=== PATIENT | female | born 1970 | race Caucasian/White ===

== ENCOUNTER → 2017-08-25 | Outpatient (CLI) | payer BC ==
--- NOTE | 2017-08-26 11:47 | MM ---
Reason for exam: screening (asymptomatic). Last mammogram was performed 2 years and 3 months ago. History: Taking hormonal contraceptives for 3 months beginning at age 36. Physical Findings: A clinical breast exam by your physician is recommended on an annual basis and results should be correlated with mammographic findings. MG Screening Mammo w CAD Bilateral CC and MLO view(s) were taken. Prior study comparison: May 23, 2015, bilateral MG screening mammo w CAD. September 18, 2012, bilateral digital screening mammo w/CAD. The breast tissue is heterogeneously dense. This may lower the sensitivity of mammography. There is no discrete abnormality. ASSESSMENT: Negative, BI-RAD 1 RECOMMENDATION: Routine screening mammogram of both breasts in 1 year.
== END | disposition home or self-care (01) ==
LOC: RADMAMWWP 08:58
PROVIDERS: ATTEND Obstetrics & Gynecology
DX: Z12.31 Encounter for screening mammogram for malignant neoplasm of breast (principal)
CPT/HCPCS: 77067

== ENCOUNTER 2017-12-05 09:41 | Observation (INO) | payer BC ==
--- NOTE | 2017-12-05 10:16 | ED ---
General Adult HPI - General Chief complaint: Chest Pain Stated complaint: Chest tighness Time Seen by Provider: 12/05/17 10:00 Source: patient, RN notes reviewed Mode of arrival: wheelchair Limitations: no limitations - History of Present Illness Initial comments: 47 yo female presenting for evaluation of chest tightness and pain in her left knee. Patient was seen at [facility], sent over for evaluation of both chest tightness and concern for DVT in the left lower extremity. Patient has had sharp intermittent pain behind her left knee, no swelling, no calf tenderness. This has been daily for the past several weeks, pain lasts just seconds and then resolves. Patient also has had an episode of bandlike chest tightness around her upper abdomen and lower chest for the past one week. This is been constant. Described as a tightness. No dyspnea. No diaphoresis. No nausea vomiting. No sharp pains. No radiation to her shoulders or arms. - Related Data Home Medications Medication Instructions Recorded Confirmed Norgestimate-Ethinyl Estradiol 1 tab PO DAILY 12/05/17 12/05/17 [Sprintec 28 Day Tablet] Allergies Allergy/AdvReac Type Severity Reaction Status Date / Time No Known Allergies Allergy Verified 12/05/17 10:33 Review of Systems ROS Statement: Those systems with pertinent positive or pertinent negative responses have been documented in the HPI. ROS Other: All systems not noted in ROS Statement are negative. Past Medical History Past Medical History: No Reported History Additional Past Medical History / Comment(s): endometriosis History of Any Multi-Drug Resistant Organisms: None Reported Additional Past Surgical History / Comment(s): surgery for endometriosis Past Psychological History: No Psychological Hx Reported Smoking Status: Former smoker Past Alcohol Use History: Occasional Past Drug Use History: None Reported General Exam Limitations: no limitations General appearance: alert, in no apparent distress Head exam: Present: atraumatic, normocephalic Eye exam: Present: normal appearance, PERRL, EOMI ENT exam: Present: normal exam Neck exam: Present: normal inspection. Absent: tenderness, meningismus Respiratory exam: Present: normal lung sounds bilaterally. Absent: respiratory distress Cardiovascular Exam: Present: regular rate, normal rhythm GI/Abdominal exam: Present: soft. Absent: distended, tenderness, guarding Extremities exam: Present: normal inspection, normal capillary refill. Absent: pedal edema, calf tenderness Neurological exam: Present: alert, oriented X3, CN II-XII intact. Absent: motor sensory deficit Psychiatric exam: Present: normal affect, normal mood Skin exam: Present: warm, dry, intact. Absent: cyanosis, diaphoretic Course Vital Signs 12/05/17 12/05/17 12/05/17 09:44 11:17 12:04 Temperature 98.4 F Pulse Rate 79 65 65 Respiratory 18 16 16 Rate Blood Pressure 133/79 147/80 122/70 O2 Sat by Pulse 100 99 99 Oximetry EKG Findings - EKG Comments: EKG Findings:: EKG, sinus rhythm with PACs, minimal voltage criteria for LVH, rate of 77, AZ interval 144, QRS duration 94, QTC 439. Medical Decision Making - Medical Decision Making 47-year-old with chest tightness, concern for lower extremity DVT. Chest x- rays obtained, this is negative for acute cardiopulmonary disease, venous duplex of the left lower extremity negative for DVT. D-dimer is mildly elevated given the chest tightness, CT angiography is obtained, this is negative for central PE, suboptimal study for peripheral pulmonary embolism. Laboratory studies are otherwise unremarkable. Patient's symptoms are somewhat concerning for CAD. She will be placed in observation for serial cardiac enzymes and cardiology consult. Case discussed with Dr. Reed will accept admission. - Lab Data Result diagrams: 12/05/17 10:00 12/05/17 10:00 Lab Results 12/05/17 12/05/17 12/05/17 Range/Units 10:00 10:00 10:00 WBC 7.5 (3.8-10.6) k/uL RBC 4.27 (3.80-5.40) m/uL Hgb 12.2 (11.4-16.0) gm/dL Hct 37.1 (34.0-46.0) % MCV 86.9 (80.0-100.0) fL MCH 28.5 (25.0-35.0) pg MCHC 32.8 (31.0-37.0) g/dL RDW 13.1 (11.5-15.5) % Plt Count 336 (150-450) k/uL Neutrophils % 73 % Lymphocytes % 21 % Monocytes % 4 % Eosinophils % 1 % Basophils % 0 % Neutrophils # 5.4 (1.3-7.7) k/uL Lymphocytes # 1.5 (1.0-4.8) k/uL Monocytes # 0.3 (0-1.0) k/uL Eosinophils # 0.1 (0-0.7) k/uL Basophils # 0.0 (0-0.2) k/uL PT (9.0-12.0) sec INR (<1.2) APTT (22.0-30.0) sec D-Dimer (<0.60) mg/L FEU Sodium 142 (137-145) mmol/L Potassium 4.6 (3.5-5.1) mmol/L Chloride 103 (98-107) mmol/L Carbon Dioxide 25 (22-30) mmol/L Anion Gap 14 mmol/L BUN 10 (7-17) mg/dL Creatinine 0.60 (0.52-1.04) mg/dL Est GFR (CKD-EPI)AfAm >90 (>60 ml/min/1.73 sqM) Est GFR (CKD-EPI)NonAf >90 (>60 ml/min/1.73 sqM) Glucose 100 H (74-99) mg/dL Calcium 9.9 (8.4-10.2) mg/dL Magnesium 1.8 (1.6-2.3) mg/dL Total Bilirubin 0.3 (0.2-1.3) mg/dL AST 13 L (14-36) U/L ALT 18 (9-52) U/L Alkaline Phosphatase 74 (38-126) U/L Total Creatine Kinase 29 L (30-135) U/L CK-MB (CK-2) <0.2 (0.0-2.4) ng/mL CK-MB (CK-2) Rel Index Troponin I <0.012 (0.000-0.034) ng/mL NT-Pro-B Natriuret Pep pg/mL Total Protein 7.4 (6.3-8.2) g/dL Albumin 4.1 (3.5-5.0) g/dL Amylase 78 (30-110) U/L Lipase 62 (23-300) U/L 12/05/17 12/05/17 Range/Units 10:00 10:00 WBC (3.8-10.6) k/uL RBC (3.80-5.40) m/uL Hgb (11.4-16.0) gm/dL Hct (34.0-46.0) % MCV (80.0-100.0) fL MCH (25.0-35.0) pg MCHC (31.0-37.0) g/dL RDW (11.5-15.5) % Plt Count (150-450) k/uL Neutrophils % % Lymphocytes % % Monocytes % % Eosinophils % % Basophils % % Neutrophils # (1.3-7.7) k/uL Lymphocytes # (1.0-4.8) k/uL Monocytes # (0-1.0) k/uL Eosinophils # (0-0.7) k/uL Basophils # (0-0.2) k/uL PT 9.5 (9.0-12.0) sec INR 1.0 (<1.2) APTT 22.6 (22.0-30.0) sec D-Dimer 0.57 (<0.60) mg/L FEU Sodium (137-145) mmol/L Potassium (3.5-5.1) mmol/L Chloride (98-107) mmol/L Carbon Dioxide (22-30) mmol/L Anion Gap mmol/L BUN (7-17) mg/dL Creatinine (0.52-1.04) mg/dL Est GFR (CKD-EPI)AfAm (>60 ml/min/1.73 sqM) Est GFR (CKD-EPI)NonAf (>60 ml/min/1.73 sqM) Glucose (74-99) mg/dL Calcium (8.4-10.2) mg/dL Magnesium (1.6-2.3) mg/dL Total Bilirubin (0.2-1.3) mg/dL AST (14-36) U/L ALT (9-52) U/L Alkaline Phosphatase (38-126) U/L Total Creatine Kinase (30-135) U/L CK-MB (CK-2) (0.0-2.4) ng/mL CK-MB (CK-2) Rel Index Troponin I (0.000-0.034) ng/mL NT-Pro-B Natriuret Pep 147 pg/mL Total Protein (6.3-8.2) g/dL Albumin (3.5-5.0) g/dL Amylase (30-110) U/L Lipase (23-300) U/L Disposition Clinical Impression: Chest pain Disposition: [facility] Condition: Stable Is patient prescribed a controlled substance at discharge?: No Referrals: None,Stated [Primary Care Provider] - 1-2 days Decision to Admit Reason: Admit from EC Decision Date: 12/05/17 Decision Time: 13:05
[2017-12-05 10:34] LABS: Basophils % (A) 0 %; Eosinophils # (A) 0.1 k/uL (0-0.7); Eosinophils % (A) 1 %; HCT 37.1 % (34.0-46.0); HGB 12.2 gm/dL (11.4-16.0); Lymphocytes # (A) 1.5 k/uL (1.0-4.8); Lymphocytes % (A) 21 %; MCH 28.5 pg (25.0-35.0); MCHC 32.8 g/dL (31.0-37.0); MCV 86.9 fL (80.0-100.0); Mean Platelet Volume 7.6; Monocytes # (A) 0.3 k/uL (0-1.0); Monocytes % (A) 4 %; Neutrophils # (A) 5.4 k/uL (1.3-7.7); Neutrophils % (A) 73 %; Platelet Count 336 k/uL (150-450); RBC 4.27 m/uL (3.80-5.40); RDW 13.1 % (11.5-15.5); WBC 7.5 k/uL (3.8-10.6)
[2017-12-05 10:42] LABS: ALT 18 U/L (9-52); AST 13 U/L (14-36); Albumin 4.1 g/dL (3.5-5.0); Alkaline Phosphatase 74 U/L (38-126); Amylase 78 U/L (30-110); Anion Gap 14 mmol/L; Blood Urea Nitrogen 10 mg/dL (7-17); Calcium 9.9 mg/dL (8.4-10.2); Carbon Dioxide 25 mmol/L (22-30); Chloride 103 mmol/L (98-107); Glucose 100 mg/dL (74-99); Lipase 62 U/L (23-300); Magnesium 1.8 mg/dL (1.6-2.3); Potassium 4.6 mmol/L (3.5-5.1); Sodium 142 mmol/L (137-145); Total Bilirubin 0.3 mg/dL (0.2-1.3); Total Protein 7.4 g/dL (6.3-8.2)
[2017-12-05 10:49] LABS: D-Dimer 0.57 mg/L FEU (<0.60); Partial Thromboplastin Time 22.6 sec (22.0-30.0); Prothrombin Time 9.5 sec (9.0-12.0)
--- NOTE | 2017-12-05 11:05 | XR ---
EXAMINATION TYPE: XR chest 2V DATE OF EXAM: 12/05/2017 COMPARISON: NONE HISTORY: Chest tightness and pain for 5 days. TECHNIQUE: Frontal and lateral views of the chest are obtained. FINDINGS: Overlying EKG wires are noted. There is no focal air space opacity, pleural effusion, or p neumothorax seen. The cardiac silhouette size is within normal limits. The osseous structures are intact. IMPRESSION: No acute cardiopulmonary process.
[2017-12-05 11:07] LABS: Creatine Kinase 29 U/L (30-135)
--- NOTE | 2017-12-05 11:19 | US ---
EXAMINATION TYPE: US venous doppler duplex LE LT DATE OF EXAM: 12/05/2017 10:14 AM COMPARISON: NONE CLINICAL HISTORY: Pain. left knee pain and chest pain, no h/o dvt SIDE PERFORMED: Left TECHNIQUE: The lower extremity deep venous system is examined utilizing real time linear array sonog dwight with graded compression, doppler sonography and color-flow sonography. VESSELS IMAGED: External Iliac Vein (EIV) Common Femoral Vein Deep Femoral Vein Greater Saphenous Vein * Femoral Vein Popliteal Vein Small Saphenous Vein * Proximal Calf Veins (* superficial vessels) Left Leg: Appears negative for DVT Grayscale, color doppler, spectral doppler imaging performed of the deep veins of the left lower ext remity. There is normal flow, compressibility, vascular waveforms. IMPRESSION: No ultrasound evidence for acute DVT in the left lower extremity.
[2017-12-05 11:20] LABS: Creatine Kinase MB <0.2 ng/mL (0.0-2.4); Troponin I <0.012 ng/mL (0.000-0.034)
[2017-12-05] MEDS ORDERED: RX INFO: IV CONTRAST WAS GIVEN 1 EACH MISC MISCELLANE PRN (12:02)
--- NOTE | 2017-12-05 12:46 | CT ---
EXAMINATION TYPE: CT angio chest DATE OF EXAM: 12/05/2017 COMPARISON: NONE HISTORY: Chest pressure and pain, left knee pain CT DLP: 298.4 mGycm. Automated Exposure Control for Dose Reduction was Utilized. CONTRAST: CTA scan of the thorax is performed with IV Contrast, patient injected with 100 mL of Isovue 370, pul monary embolism protocol. MIP Images are created on CT scanner and reviewed. FINDINGS: LUNGS: Respiratory motion artifact is seen making evaluation suboptimal particularly for subcentimete r nodularity. Dependent atelectasis in both lower lobes is present. There is no suspicious focal cons olidation. There is no suspicious pleural effusion or pneumothorax seen bilaterally. No concerning pa renchymal mass is identified bilaterally. Mild central peribronchial wall thickening is seen. MEDIASTINUM: There is suboptimal bolus with denser contrast the left versus right heart system and mo st dense contrast in the SVC. There is no large central pulmonary embolism, smaller lobar as well as segmental and subsegmental PE cannot be excluded on this study. There are no greater than 1 cm hilar or mediastinal lymph nodes. No significant pericardial effusion is seen. Mild cardiomegaly is prese nt. OTHER: Portion of fairly normal-appearing ascending appendix is noted in the right abdomen IMPRESSION: 1. Suboptimal study, no large central pulmonary embolism, smaller lobar, segmental, and subsegmental PE cannot be excluded on this study. 2. Mild cardiomegaly without suspicious acute pulmonary process.
[2017-12-05] MEDS ORDERED: NALOXONE 0.4 MG/ML 1 ML VIAL IV PRN (13:26)
[2017-12-05] MEDS ORDERED: ASPIRIN 325 MG TAB PO STA (13:31)
[2017-12-05] MEDS: SODIUM CHLORIDE 0.9% 1,000 ML IV SCH (13:37)
[2017-12-05] MEDS ORDERED: NITROGLYCERIN SL TABS 0.4 MG TAB SUBLINGUAL PRN (14:16)
[2017-12-05 16:17] LABS: Creatine Kinase 25 U/L (30-135)
[2017-12-05 16:30] LABS: Creatine Kinase MB <0.2 ng/mL (0.0-2.4); Troponin I <0.012 ng/mL (0.000-0.034)
--- NOTE | 2017-12-05 16:52 | P.HPIM ---
History of Present Illness H&P Date: 12/05/17 Chief Complaint: Chest pain and left leg pain 47-year-old female with no significant past medical history. She presented to the hospital due to complaints of chest pain and left leg pain. For the leg pain she reported that's been going on for 3 weeks now she feels random attacks of sharp pain lasting few seconds and the back of her left knee and upper left leg for which can happen randomly severe sharp pain 8 out of 10 in severity that last visit and then dissipates on its own not related to any activity of or movement she does not recall any injuries or traumas. Further workup in the ED did not reveal any DVTs or acute PE. She also reported some chest pain described it as a band goes around her lower chest and back started while she was walking around at the mall a week ago and persisted until today she said the pain is like 2-3 out of 10 in severity just dull achy pain does not prevent her from going on about her day and activities but it's been concerning to her as it is not going away. This is not associated with any dizziness, lightheadedness, sweating, trouble breathing, denies any orthopnea, paroxysmal maternal dyspnea or leg leg swelling. She denies any family history of premature CAD. She quit smoking over 20 years ago. And she is active daily without any limitations. Patient also reports some discomfort with certain meals where it could be associated with an immediate bowel movement after eating and some upper abdominal discomfort. Again denies any nausea or vomiting denies any diarrhea. Review of Systems Constitutional: Patient denies fever, denies chills, denies night sweating, denies significant weight changes Eyes: Patient denies visual changes, denies eye pain ENT: Patient denies ear pain, denies rhinorrhea, denies sore throat Cardiovascular: Patient denies exertional dyspnea, denies peripheral leg edema, denies orthopnea, denies paroxysmal nocturnal dyspnea Respiratory:Patient denies cough, denies wheezing, denies shortness of breath Gastrointestinal: As per HPI Genitourinary: Patient denies dysuria, denies hematuria, denies changes in urinary habits, denies genital lesions Musculoskeletal: Patient reports left leg pain as mentioned in HPI denies joint pain Psychiatric: Patient denies changes in mood or memory, denies suicidal ideation, denies anxiety Endocrine: Patient denies heat intolerance, denies cold intolerance, denies excessive thirst, denies polyuria Neurological: Patient denies focal neurologic deficits, denies weakness, denies numbness, denies tingling Hem/Lymphatic: Patient denies bleeding tendency, denies bruising, denies swollen lymph glands Allergic/Immun: Patient denies recent allergic reactions Skin: Patient denies rashes, denies pruritis, denies ulcers Past Medical History Past Medical History: No Reported History Additional Past Medical History / Comment(s): Frequent headaches. History of Any Multi-Drug Resistant Organisms: None Reported Additional Past Surgical History / Comment(s): surgery for endometriosis many years ago, wisdom teeth extractions. Past Anesthesia/Blood Transfusion Reactions: No Reported Reaction, Motion Sickness Smoking Status: Former smoker - Past Family History Father Family Medical History: Hypertension Mother Family Medical History: Cancer Additional Family Medical History / Comment(s): Mother had a type of sarcoma. Medications and Allergies Home Medications Medication Instructions Recorded Confirmed Type Norgestimate-Ethinyl Estradiol 1 tab PO DAILY 12/05/17 12/05/17 History [Sprintec 28 Day Tablet] Allergies Allergy/AdvReac Type Severity Reaction Status Date / Time No Known Allergies Allergy Verified 12/05/17 10:33 Physical Exam Vitals: Vital Signs Temp Pulse Resp BP Pulse Ox 12/05/17 13:37 78 16 126/84 100 12/05/17 12:04 65 16 122/70 99 12/05/17 11:17 65 16 147/80 99 12/05/17 09:44 98.4 F 79 18 133/79 100 Intake and Output 12/04/17 12/05/17 12/05/17 22:59 06:59 14:59 Other: Weight 79.379 kg Constitutional: No acute distress, conversant, pleasant Eyes: Anicteric sclerae, moist conjunctiva, no lid-lag Pupils equal round reactive to light ENMT: NC/AT Oropharynx clear, no erythema, exudates Neck: Supple, FROM, no masses, or JVD No carotid bruits No thyromegaly Lungs: Clear to auscultation Clear to percussion Normal respiratory effort, no accessory muscle use Cardiovascular: Heart regular in rate and rhythm, No murmurs, gallops, or rubs No peripheral edema Abdominal: Soft Discomfort to palpation of the epigastric region, no guarding, rebound or rigidity Abdomen moving with respiration Normoactive bowel sounds No hepatomegaly, No splenomegaly No palpable mass No abdominal wall hernia noted Skin: Normal temperature, tone, texture, turgor No induration No subcutaneous nodules No rash, lesions No ulcers Extremities: No digital cyanosis No clubbing Pedal pulses intact and symmetrical Radial pulses intact and symmetrical No calf tenderness Psychiatric: Alert and oriented to person, place and time Appropriate affect fair judgment Neuro Muscles Strength 5/5 in all 4 extremities Sensation to light touch grossly present throughout Cranial nerves II-XII grossly intact No focal sensory deficits Lymphatics: no palpable cervical or supraclavicular , or inguinal lymph nodes Results CBC & Chem 7: 12/05/17 10:00 12/05/17 10:00 Labs: Abnormal Lab Results - Last 24 Hours (Table) 12/05/17 12/05/17 Range/Units 10:00 10:00 Glucose 100 H (74-99) mg/dL AST 13 L (14-36) U/L Total Creatine Kinase 29 L (30-135) U/L Thrombosis Risk Factor Assmnt - Choose All That Apply Any of the Below Risk Factors Present?: Yes Each Factor Represents 1 point: Age 41-60 years, Obesity (BMI >25) Other Risk Factors: No Other congenital or acquired thrombophilia - If yes, enter type in comment: No Thrombosis Risk Factor Assessment Total Risk Factor Score: 2 Thrombosis Risk Factor Assessment Level: Low Risk Assessment and Plan Assessment: 47-year-old female otherwise healthy without any past medical history. Presented due to frequent attacks of left leg pain. And lower chest upper abdominal pain. Patient is admitted under observation for further cardiac workup at the cycle cardiac enzymes to rule out ACS. Plan: #Atypical chest pain, most likely noncardiac Rule out ACS, cycle cardiac enzymes Lipase is negative #Abdominal discomfort with meals Check limited abdominal ultrasound to rule out cholelithiasis or gallstones #DVT prophylaxis Heparin subcu 3 times a day #Left leg pain Most likely musculoskeletal CODE STATUS: Full code Discussed with: Patient, ER, family Anticipated discharge: [address]: Home A total of 50 minutes was spent on the care of this complex patient more than 50 % of the time was spent in counseling and care coordination.
[2017-12-05] MEDS: HEPARIN SODIUM,PORCINE 5,000 UNIT/ML 1 ML VIAL SQ SCH (21:25)
[2017-12-05] MEDS: NORGESTIMATE-ETHINYL ESTRADIOL 1 EACH TABLET PO SCH (21:28)
[2017-12-05 23:07] LABS: Creatine Kinase 25 U/L (30-135)
[2017-12-05 23:19] LABS: Creatine Kinase MB <0.2 ng/mL (0.0-2.4); Troponin I <0.012 ng/mL (0.000-0.034)
--- NOTE | 2017-12-06 08:33 | US ---
EXAMINATION TYPE: US abdomen limited DATE OF EXAM: 12/06/2017 COMPARISON: NONE CLINICAL HISTORY: abd pain , r/o gall stones, cholelithiasis. abd pain EXAM MEASUREMENTS: Liver Length: 14.8 cm Gallbladder Wall: 0.4 cm CBD: 0.6 cm Right Kidney: 9.9 x 4.9 x 4.6 cm Pancreas: wnl Liver: wnl Gallbladder: 2.1cm mobile stone seen with thickened wall Evidence for sonographic Grimes's sign: no CBD: upper limits of normal Right Kidney: wnl IMPRESSION: Cholelithiasis and slight thickening of the gallbladder wall without other convincing trinity dence of acute cholecystitis. HIDA and could be performed for further evaluation to exclude cholecyst itis.
[2017-12-06] MEDS: ASPIRIN 81 MG PO SCH (08:51)
[2017-12-06] MEDS: HEPARIN SODIUM,PORCINE 5,000 UNIT/ML 1 ML VIAL SQ SCH (08:51)
[2017-12-06] MEDS: NORGESTIMATE-ETHINYL ESTRADIOL 1 EACH TABLET PO SCH (08:54)
--- NOTE | 2017-12-06 10:52 | ECHOF ---
Referral Reason:cp MEASUREMENTS -------- HEIGHT: 160.0 cm WEIGHT: 78.9 kg BP: 138/84 RVIDd: 2.5 cm (< 3.3) IVSd: 0.9 cm (0.6 - 1.1) LVIDd: 4.7 cm (3.9 - 5.3) LVPWd: 0.9 cm (0.6 - 1.1) IVSs: 1.1 cm LVIDs: 3.5 cm LVPWs: 1.3 cm LAESV Index (A-L): 31.03 ml/m Ao Diam: 2.8 cm (2.0 - 3.7) AV Cusp: 1.9 cm (1.5 - 2.6) LA Diam: 2.9 cm (2.7 - 3.8) EPSS: 1.4 cm MV E Kevin: 0.89 m/s MV DecT: 280 ms MV A Kevin: 0.72 m/s MV E/A Ratio: 1.23 RAP: 5.00 mmHg RVSP: 27.20 mmHg MV EF SLOPE: 116.53 mm/s (70 - 150) MV EXCURSION: 1.79 cm (> 18.000) FINDINGS -------- Sinus rhythm. This was a technically good study. The left ventricular size is normal. Left ventricular wall thickness is normal. Overall left vent ricular systolic function is normal with, an EF between 55 - 60 %. The right ventricle is normal in size and function. LA is midly dilated 29-33ml/m2. RA appears enlarged. Aortic valve is trileaflet and is mildly thickened. There is no evidence of aortic regurgitation. There is no evidence of aortic stenosis. The mitral valve leaflets are mildly thickened. There is trace to mild mitral regurgitation. Trace tricuspid regurgitation present. Right ventricular systolic pressure is normal at < 35 mmHg. There is no evidence of pulmonary hypertension. Trace/mild (physiologic) pulmonic regurgitation. The aortic root size is normal. Normal inferior vena cava with normal inspiratory collapse consistent with estimated right atrial pre ssure of 5 mmHg. There is no pericardial effusion. CONCLUSIONS -------- 1. Sinus rhythm. 2. This was a technically good study. 3. The left ventricular size is normal. 4. Left ventricular wall thickness is normal. 5. Overall left ventricular systolic function is normal with, an EF between 55 - 60 %. 6. LA is midly dilated 29-33ml/m2. 7. RA appears enlarged. 8. Aortic valve is trileaflet and is mildly thickened. 9. The mitral valve leaflets are mildly thickened. 10. There is trace to mild mitral regurgitation. 11. Trace tricuspid regurgitation present. 12. Right ventricular systolic pressure is normal at < 35 mmHg. 13. There is no evidence of pulmonary hypertension. 14. Trace/mild (physiologic) pulmonic regurgitation. 15. The aortic root size is normal. 16. There is no pericardial effusion. [employer]: Juan Cole RDCS
--- NOTE | 2017-12-06 11:15 | P.PN ---
Subjective Progress Note Date: 12/06/17 Principal diagnosis: Abdominal/chest pain Patient continues to have significant abdominal/chest pain. No relationship to food. No sob, no cough. Objective - Vital Signs Vital signs: Vital Signs Temp 98.4 F 12/06/17 07:45 Pulse 80 12/06/17 07:45 Resp 16 12/06/17 07:45 BP 138/84 12/06/17 07:45 Pulse Ox 97 12/06/17 07:45 Intake & Output 12/05/17 12/06/17 12/06/17 18:59 06:59 18:59 Weight 79.1 kg Other: # Voids 1 1 - Exam Constitutional: No acute distress, conversant, pleasant Eyes:Anicteric sclerae, moist conjunctiva, no lid-lag, PERRLA, ENMT: Oropharynx clear, no erythema, exudates Neck: Supple, FROM, no masses, or JVD, No carotid bruits, No thyromegaly Lungs: Clear to auscultation, Clear to percussion, Normal respiratory effort, no accessory muscle use Cardiovascular: Heart regular in rate and rhythm, No murmurs, gallops, or rubs, No peripheral edema Abdominal: Soft, Nontender, no guarding, rebound or rigidity, Normoactive bowel sounds, No hepatomegaly, No splenomegaly, No palpable mass Skin: Normal temperature, tone, texture, turgor, no induration, No subcutaneous nodules, No rash, lesions, No ulcers Extremities: No digital cyanosis, No clubbing, Pedal pulses intact and symmetrical, Radial pulses intact and symmetrical, No calf tenderness Psychiatric: Alert and oriented to person, place and time, appropriate affect, intact judgement Neuro: Muscles Strength 5/5 in all 4 extremities, Sensation to light touch grossly present throughout, Cranial nerves II-XII grossly intact, no focal sensory deficits - Labs CBC & Chem 7: 12/05/17 10:00 12/05/17 10:00 Labs: Abnormal Lab Results - Last 24 Hours (Table) 12/05/17 12/05/17 12/05/17 Range/Units 10:00 15:48 22:06 Total Creatine Kinase 29 L 25 L 25 L (30-135) U/L Assessment and Plan Plan: #1 Abdominal/chest pain: Troponin cycled, negative Patient was seen by cardiology, cardiac etiology of the pain was ruled out, she was cleared from their perspective, only ordered echocardiogram, no need for stress test Patient had an ultrasound of the right upper quadrant which showed possible cholecystitis with gallstone We'll do a HIDA scan Consult surgery #2. History of endometriosis Continue control pills
--- NOTE | 2017-12-06 12:26 | P.CRDCN ---
History of Present Illness Consult date: 12/06/17 History of present illness: Mrs. Hung is a pleasant 47-year-old female past medical history significant for remote history of tobacco use, quit 1997. She denies history of coronary artery disease, hypertension, dyslipidemia or diabetes mellitus. She has no family history of heart disease and has never seen a regional marketing director for any reason. We have been asked to see her in consultation for chest pain. She states last Tuesday while she walking around the mall with her she developed an acute feeling of dizziness, diaphoresis and nausea that caused her to have to sit down. Immediately thereafter she started having a tight band like sensation around her chest and back. The tightness was mild but persistent. The other symptoms subsided after about 20 minutes but the tightness has remained ever since. The pain is manageable and not impeding her daily activities. She denies any symptoms of shortness of breath, palpitations or vomiting. The pain does seem to intensify after she eats with no specific alleviating factors. EKG reveals sinus mechanism with no acute ST or T-wave abnormalities. Chest xray is negative for an acute cardiopulmonary process. Laboratory data reviewed, hemoglobin 12.2, platelets 336, d-dimer 0.57, sodium 142, potassium 4.6, magnesium 1.8, cardiac enzymes negative 3. Review of Systems At the time of my exam: CONSTITUTIONAL: Denies fever. Denies chills. EYES: Denies blurred vision. Denies vision changes. Denies eye pain. EARS, NOSE, MOUTH & THROAT: Denies headache. Denies sore throat. Denies ear pain. CARDIOVASCULAR: Denies chest pain. Denies shortness of breath. Denies orthopnea. Denies PND. Denies palpitations. RESPIRATORY: Denies cough. GASTROINTESTINAL: Complains of epigastric tenderness. Denies abdominal pain. Denies diarrhea. Denies constipation. Denies nausea. Denies vomiting. MUSCULOSKELETAL: Denies myalgias. INTEGUMENTARY: Denies pruitis. Denies rash. NEUROLOGIC: Denies numbness. Denies tingling. Denies weakness. PSYCHIATRIC: Denies anxiety. Denies depression. ENDOCRINE: Denies fatigue. Denies weight change. Denies polydipsia. Denies polyurina. GENITOURINARY: Denies burning, hematuria or urgency with micturation. HEMATOLOGIC: Denies history of anemia. Denies bleeding. Past Medical History Past Medical History: No Reported History Additional Past Medical History / Comment(s): Frequent headaches. History of Any Multi-Drug Resistant Organisms: None Reported Additional Past Surgical History / Comment(s): surgery for endometriosis many years ago, wisdom teeth extractions. Past Anesthesia/Blood Transfusion Reactions: No Reported Reaction, Motion Sickness Smoking Status: Former smoker - Past Family History Father Family Medical History: Hypertension Mother Family Medical History: Cancer Additional Family Medical History / Comment(s): Mother had a type of sarcoma. Medications and Allergies Home Medications Medication Instructions Recorded Confirmed Type Norgestimate-Ethinyl Estradiol 1 tab PO DAILY 12/05/17 12/05/17 History [Sprintec 28 Day Tablet] Allergies Allergy/AdvReac Type Severity Reaction Status Date / Time No Known Allergies Allergy Verified 12/05/17 10:33 Physical Exam Vitals: Vital Signs Temp Pulse Pulse Resp BP BP BP 12/06/17 07:45 98.4 F 80 16 138/84 12/06/17 04:00 98.3 F 70 16 111/65 12/06/17 00:00 73 16 12/05/17 23:45 98.8 F 73 16 137/71 12/05/17 20:00 16 12/05/17 18:11 98 F 77 16 134/76 12/05/17 15:43 85 16 127/70 12/05/17 14:30 99.2 F 81 18 129/76 12/05/17 13:37 78 16 126/84 12/05/17 12:04 65 16 122/70 12/05/17 11:17 65 16 147/80 12/05/17 09:44 98.4 F 79 18 133/79 Pulse Ox 12/06/17 07:45 97 12/06/17 04:00 99 12/06/17 00:00 12/05/17 23:45 98 12/05/17 20:00 12/05/17 18:11 100 12/05/17 15:43 100 12/05/17 14:30 100 12/05/17 13:37 100 12/05/17 12:04 99 12/05/17 11:17 99 12/05/17 09:44 100 Intake and Output 12/05/17 12/06/17 12/06/17 22:59 06:59 14:59 Other: # Voids 1 1 Weight 79.1 kg Blood pressure 130/84 heart rate 88 afebrile maintaining oxygen saturation on room air GENERAL: This is a 47-year-old occasion female in no apparent distress at the time of my examination. HEENT: Head is atraumatic, normocephalic. Pupils are equal, round. Sclerae anicteric. Conjunctivae are clear. Mucous membranes of the mouth are moist. Neck is supple. There is no jugular venous distention. No carotid bruit is heard. LUNGS: Clear to auscultation no wheezes, rales or rhonchi. No chest wall tenderness is noted on palpation or with deep breathing. HEART: Regular rate and rhythm without murmurs, rubs or gallops. S1 and S2 heard. ABDOMEN: Soft, mild epigastric tenderness. Bowel sounds are heard. No organomegaly noted. Negative Grimes sign. EXTREMITIES: No evidence of peripheral edema and no calf tenderness noted. VASCULAR: Radial and dorsalis pedis pulses palpated, no evidence of clubbing. NEUROLOGIC: Patient is awake, alert and oriented x3. Results 12/05/17 10:00 12/05/17 10:00 Cardiac Enzymes 12/05/17 12/05/17 12/05/17 Range/Units 10:00 10:00 15:48 AST 13 L (14-36) U/L CK-MB (CK-2) <0.2 <0.2 (0.0-2.4) ng/mL Troponin I <0.012 <0.012 (0.000-0.034) ng/mL 12/05/17 Range/Units 22:06 AST (14-36) U/L CK-MB (CK-2) <0.2 (0.0-2.4) ng/mL Troponin I <0.012 (0.000-0.034) ng/mL Coagulation 12/05/17 Range/Units 10:00 PT 9.5 (9.0-12.0) sec APTT 22.6 (22.0-30.0) sec CBC 12/05/17 Range/Units 10:00 WBC 7.5 (3.8-10.6) k/uL RBC 4.27 (3.80-5.40) m/uL Hgb 12.2 (11.4-16.0) gm/dL Hct 37.1 (34.0-46.0) % Plt Count 336 (150-450) k/uL Comprehensive Metabolic Panel 12/05/17 Range/Units 10:00 Sodium 142 (137-145) mmol/L Potassium 4.6 (3.5-5.1) mmol/L Chloride 103 (98-107) mmol/L Carbon Dioxide 25 (22-30) mmol/L BUN 10 (7-17) mg/dL Creatinine 0.60 (0.52-1.04) mg/dL Glucose 100 H (74-99) mg/dL Calcium 9.9 (8.4-10.2) mg/dL AST 13 L (14-36) U/L ALT 18 (9-52) U/L Alkaline Phosphatase 74 (38-126) U/L Total Protein 7.4 (6.3-8.2) g/dL Albumin 4.1 (3.5-5.0) g/dL Current Medications Generic Name Dose Route Start Last Admin Trade Name Freq PRN Reason Stop Dose Admin Aspirin 81 mg 12/06/17 09:00 Aspirin PO DAILY JENNIFER Heparin Sodium (Porcine) 5,000 unit 12/06/17 00:00 12/05/17 21:25 Heparin SQ 5,000 unit Q8HR JENNIFER Administration Sodium Chloride 1,000 mls @ 20 mls/hr 12/05/17 13:30 12/05/17 13:37 Saline 0.9% IV 20 mls/hr .Q24H JENNIFER Administration Miscellaneous Information 1 each 12/05/17 12:02 12/05/17 12:29 Rx Info: Iv Contrast Was Given MISCELLANE 12/07/17 12:02 1 each DAILY PRN Administration Per Protocol Naloxone HCl 0.2 mg 12/05/17 13:26 Narcan IV Q2M PRN Opioid Reversal Nitroglycerin 0.4 mg 12/05/17 14:16 Nitrostat SUBLINGUAL Q5M PRN Chest Pain Norgestimate 1 each 12/05/17 16:15 12/05/17 21:28 Estarylla 0.25-0.035 Mg Tablet PO Not Given DAILY JENNIFER Intake and Output 12/05/17 12/06/17 12/06/17 22:59 06:59 14:59 Other: # Voids 1 1 Weight 79.1 kg 12/05/17 10:00 12/05/17 10:00 Assessment and Plan Assessment: ASSESSMENT 1. Chest pain, atypical. An acute coronary event has been ruled out with no EKG evidence of ischemia and negative cardiac enzymes. 2. Abdominal pain with nausea PLAN Obtain 2-D echocardiogram and Doppler study to assess cardiac structure and function. Pain is very atypical for cardiac etiology. Abdominal ultrasound performed this morning reveals cholelithiasis and gallbladder wall thickening. HIDA scan has been ordered and surgery is consulted. Consider stress testing as an outpatient. Stable from a cardiac perspective. Thank you kindly for this consultation. The above impression and plan of care have been discussed and directed by the signing physician. Isabell Ratliff, nurse practitioner, acting as scribe for signing physician.
--- NOTE | 2017-12-06 12:51 | P.GSCN ---
History of Present Illness Consult date: 12/06/17 Reason for Consult: Cholecystitis History of present illness: 47-year-old female seen in consultation today after she began experiencing pressure-like pain in the epigastric and retrosternal location last Tuesday. Pain radiates to the mid back. No worse on the right or left side. No nausea or vomiting. Appetite and activity have been normal. Pain is persisting. Denies shortness of breath. No history of similar events. Workup has included lower extremity venous Doppler, CT chest, ultrasound abdomen, HIDA scan, cardiac echo, and basic lab work. Cardiac workup thus far negative. Ultrasound gallbladder shows a thickened gallbladder wall approaching 5 mm and a 2.1 cm gallstone. No sonographic Grimes sign. HIDA scan shows a patent cystic duct. Review of Systems The patient denies any acute changes in vision or hearing, no dysphagia or odynophagia, no chest pain or shortness of breath, no dysuria or hematuria, no headache, no runny nose, no rectal bleeding or melena, no unexplained weight loss Past Medical History Past Medical History: No Reported History Additional Past Medical History / Comment(s): Frequent headaches. History of Any Multi-Drug Resistant Organisms: None Reported Additional Past Surgical History / Comment(s): surgery for endometriosis many years ago, wisdom teeth extractions. Past Anesthesia/Blood Transfusion Reactions: No Reported Reaction, Motion Sickness Smoking Status: Former smoker - Past Family History Father Family Medical History: Hypertension Mother Family Medical History: Cancer Additional Family Medical History / Comment(s): Mother had a type of sarcoma. Medications and Allergies Home Medications Medication Instructions Recorded Confirmed Type Norgestimate-Ethinyl Estradiol 1 tab PO DAILY 12/05/17 12/05/17 History [Sprintec 28 Day Tablet] Allergies Allergy/AdvReac Type Severity Reaction Status Date / Time No Known Allergies Allergy Verified 12/05/17 10:33 Surgical - Exam Vital Signs Temp Pulse Resp BP Pulse Ox 98.4 F 79 18 133/79 100 12/05/17 09:44 12/05/17 09:44 12/05/17 09:44 12/05/17 09:44 12/05/17 09:44 Physical exam: General: Well-developed, well-nourished HEENT: Normocephalic, sclerae nonicteric Abdomen: Nontender, nondistended Extremities: No edema Neuro: Alert and oriented Results - Labs 12/05/17 10:00 12/05/17 10:00 Abnormal Lab Results - Last 24 Hours (Table) 12/05/17 12/05/17 Range/Units 15:48 22:06 Total Creatine Kinase 25 L 25 L (30-135) U/L Assessment and Plan (1) Chronic cholecystitis Narrative/Plan: Clinical findings discussed with the patient in detail. At this point I have no other explanation for her symptoms other than the enlarged gallstone with gallbladder wall thickening. The lack of tenderness is somewhat atypical. Options of cholecystectomy reviewed. Risks of bleeding, infection, bile leak, bile duct injury, postoperative diarrhea, postoperative pain, hernia, trocar injury were all discussed. She understands and plans to discuss this further with her family before deciding on surgery. Current Visit: Yes Status: Acute Code(s): K81.1 - CHRONIC CHOLECYSTITIS SNOMED Code(s): 91687060
--- NOTE | 2017-12-06 12:54 | NM ---
EXAMINATION TYPE: NM hepatobiliary wo EF DATE OF EXAM: 12/06/2017 COMPARISON: 12/06/2017 HISTORY: Abdominal pain TECHNIQUE: After the intravenous administration of 5.17 mCi Tc 99m Mebrofenin hepatobiliary scintigra phy is performed. Immediate images post injection. FINDINGS: There is appropriate radiotracer washout of within the liver throughout the examination. The gallblad kami is visualized definitively at 10 minutes excluding acute cystic duct obstruction and acute cholel ithiasis. Small bowel is definitively visualized at 26 minutes with progressive fill-in. IMPRESSION: No scintigraphic evidence of acute or chronic cholecystitis.
[2017-12-06] MEDS: SODIUM CHLORIDE 0.9% 1,000 ML IV SCH (17:07)
[2017-12-06] MEDS ORDERED: LACTATED RINGERS 1,000 ML IV ONE (17:13)
[2017-12-06] MEDS ORDERED: SCOPOLAMINE 1.5MG/72HR PATCH TRANSDERM ONE (17:32)
[2017-12-06] MEDS ORDERED: ONDANSETRON 4 MG/2 ML VIAL IVP ONE (17:32)
[2017-12-06] MEDS ORDERED: SCOPOLAMINE 1.5MG/72HR PATCH TRANSDERM STA (17:35)
[2017-12-06] MEDS ORDERED: LIDOCAINE 1% INJ 10MG/ML (20 ML MDV) ONE (18:40)
[2017-12-06] MEDS ORDERED: ROCURONIUM BROMIDE 10 MG/ML 10 ML VIAL IV ONE (18:40)
[2017-12-06] MEDS ORDERED: NEOSTIGMINE 1 MG/ML 10 ML VIAL ONE (18:40)
[2017-12-06] MEDS ORDERED: MIDAZOLAM 2 MG/2 ML VIAL ONE (18:40)
[2017-12-06] MEDS ORDERED: PROPOFOL 10 MG/ML 20 ML VIAL IV ONE (18:40)
[2017-12-06] MEDS ORDERED: fentaNYL (PF) 50 MCG/ML 2 ML AMP ONE (18:40)
[2017-12-06] MEDS ORDERED: GLYCOPYRROLATE 0.2 MG/ML 2 ML VIAL ONE (18:40)
[2017-12-06] MEDS ORDERED: KETOROLAC 30 MG/ML 1 ML VIAL ONE (18:40)
[2017-12-06] MEDS ORDERED: SUCCINYLCHOLINE CHLORIDE 100 MG/5 ML SYR IV ONE (18:40)
[2017-12-06] MEDS ORDERED: BUPIVACAINE (PF) 0.25% 30 ML VIAL SQ ONE ×2 (19:07)
[2017-12-06] MEDS ORDERED: MORPHINE SULFATE 4MG/4ML SYRG IVP PRN (20:11)
--- NOTE | 2017-12-06 20:14 | P.OP ---
Date of Procedure: 12/06/17 Procedure(s) Performed: PREOPERATIVE DIAGNOSIS: Acute calculus cholecystitis POSTOPERATIVE DIAGNOSIS: Same PROCEDURE: Laparoscopic cholecystectomy SURGEON: Yaa EBL: Minimal see anesthesia record ANESTHESIA: Gen. COMPLICATIONS: None OPERATIVE PROCEDURE: The patient was brought and placed on the operating room table in the supine position. The patient was placed under general anesthesia at that time. The abdomen was prepped and draped in the usual sterile fashion. A small vertical infraumbilical incision was made. The fascia was grasped with the Patrick forceps. The fascia was retracted anteriorly. The Veress needle was advanced into the peritoneal cavity. The saline drop test was normal. Insufflation took place up to 15 mmHg. A 5 mm optical trocar was advanced and the peritoneal cavity. 2 additional 5 mm trochars were placed in the right upper quadrant under direct visualization. A 12 mm trocar was advanced into the epigastric incision site. The gallbladder appeared acutely inflamed. The wall was slightly thickened. The gallbladder was retracted superiorly and laterally. The peritoneum overlying the infundibulum was bluntly dissected. The patient's cystic duct was visualized. The junction between the cystic duct common and hepatic duct was identified. The cystic duct was then divided after placement of 3 12 mm clips on the patient's side and one on the specimen side. The cystic artery was identified and clipped as well. A small vessel was seen along the gallbladder fossa and clipped as well. The gallbladder was then removed from the liver bed using electrocautery. The gallbladder was then removed from the epigastric trocar site with an Endo Catch bag. The gallbladder fossa was irrigated with saline. There was no evidence of any bleeding or biliary drainage seen. The trochars were then removed. The fascia at the 12 millimeter site was closed using a Kurtis Laxmi 0 Vicryl stitch. The skin at all 4 sites was closed using a 4-0 Monocryl stitch. At the end of this procedure the sponge and needle counts were correct. DISPOSITION: Stable to the recovery room
[2017-12-06] MEDS ORDERED: SODIUM CHLORIDE 0.9% 1,000 ML IV ONE (20:17)
[2017-12-06] MEDS ORDERED: MORPHINE SULF 5MG/10ML VL IVP ONE (21:00)
[2017-12-06] MEDS ORDERED: ACETAMINOPHEN IV (For NPO) 1,000 MG in EMPTY BAG 1 BAG IVPB STA (21:57)
[2017-12-07 08:39] VITALS: BP 110/73; PULSE 60; RESP 18; TEMP 97.6
[2017-12-07] MEDS: ASPIRIN 81 MG PO SCH (09:24)
[2017-12-07] MEDS: HYDROcodone/APAP 5-325MG 1 EACH TAB PO PRN ×2 (09:24→14:05)
[2017-12-07] MEDS: NORGESTIMATE-ETHINYL ESTRADIOL 1 EACH TABLET PO SCH (09:24)
[2017-12-07] MEDS ORDERED: MORPHINE ORAL SOLN 10 MG/5 ML CUP PO PRN (11:01)
--- NOTE | 2017-12-07 11:32 | P.PN ---
Subjective Progress Note Date: 12/07/17 Principal diagnosis: Chronic cholecystitis Patient doing well today. Tolerating diet. She is ambulating. Her pain is improved. Objective - Vital Signs Vital signs: Vital Signs Temp 97.6 F 12/07/17 07:15 Pulse 60 12/07/17 07:15 Resp 18 12/07/17 07:15 BP 110/73 12/07/17 07:15 Pulse Ox 98 12/07/17 07:15 Intake & Output 12/06/17 12/07/17 12/07/17 18:59 06:59 18:59 Intake Total 300 650 200 Output Total 10 Balance 300 640 200 Intake: IV 300 650 Oral 200 Output: Estimated Blood Loss 10 Other: Voiding Method Toilet Toilet Toilet # Voids 1 - Exam Abdomen: Soft, nondistended, incisions clean and dry, minimal tenderness - Labs CBC & Chem 7: 12/05/17 10:00 12/05/17 10:00 Assessment and Plan (1) Chronic cholecystitis Narrative/Plan: Stable for discharge. Follow-up in the office in 2 weeks. Current Visit: Yes Status: Acute Code(s): K81.1 - CHRONIC CHOLECYSTITIS SNOMED Code(s): 79715152
--- NOTE | 2017-12-07 12:41 | P.DS ---
Providers Date of admission: 12/05/17 13:26 Expected date of discharge: 12/07/17 Attending physician: Cherry Reed MD Consults: 12/05/17 13:31 Consult Physician Routine Consulting Provider: Michelle Simons Consult Reason/Comments: CP Do you want consulting provider notified?: Yes 12/06/17 11:13 Consult Physician Routine Consulting Provider: Que Mon Consult Reason/Comments: ? cholecystitis Do you want consulting provider notified?: Yes Primary care physician: Stated None Hospital Course: 47-year-old female with no significant past medical history presented to the hospital due to complaints of chest pain and leg pain. The leg pain has been going on for 3 weeks now she felt random attacks of sharp pain lasting few seconds, dissipates on its own not related to any activity of or movement, located on the back of her left knee and upper left leg. Pain was severe, sharp 8 out of 10 in severity. She does not recall any injuries or traumas. There was no leg swelling. In regard to that pain she had a workup in the emergency department with a Doppler ultrasound of the leg and that was negative for any DVTs. She also reported some chest pain which was described it as a band that goes around her lower chest and back, the pain started while she was walking around at the mall a week ago. It persisted and since then it has been constant. The pain felt like dull ache, 2-3 out of 10 in severity. It was not associated with any dizziness, lightheadedness, sweating, trouble breathing. No orthopnea, paroxysmal maternal dyspnea. Patient is an ex-smoker. Patient also reported some discomfort with certain meals where it could be associated with an immediate bowel movement after eating and some upper abdominal discomfort. Again denies any nausea or vomiting denies any diarrhea. Examination in the emergency department was not much revealing. She was hemodynamically stable, afebrile. Chest x-ray did not reveal any acute finding. CT angiogram of the chest was negative for PE. Patient was evaluated by cardiology, her EKG was reviewed and she had an echocardiogram which was within normal limits. Troponin was cycled and remained negative. Cardiology did not recommend pursuing further investigation for that pain with stress testing at this point. Right upper quadrant ultrasound was done and that revealed 2 cm stone inside the gallbladder was some wall thickening. No acute inflammatory signs were found. General surgery was consulted and their recommendation was to take the gallbladder. Patient did have a cholecystectomy on 12/06. She tolerated the procedure well and currently her she is tolerating diet. Surgery service cleared her for discharge, she'll be discharged in a stable condition. Patient was instructed to follow-up with a primary care physician as well as general surgery as soon as possible after discharge. Time for discharge 35 minutes. Patient Condition at Discharge: Stable Plan - Discharge Summary Discharge Rx Participant: No New Discharge Prescriptions: New HYDROcodone/APAP 5-325MG [Inola 5-325] 1 each PO Q4HR PRN tab PRN Reason: Moderate Pain Continue Norgestimate-Ethinyl Estradiol [Sprintec 28 Day Tablet] 1 tab PO DAILY Discharge Medication List Norgestimate-Ethinyl Estradiol [Sprintec 28 Day Tablet] 1 tab PO DAILY 12/05/17 [History] HYDROcodone/APAP 5-325MG [Inola 5-325] 1 each PO Q4HR PRN tab 12/07/17 [Rx] Follow up Appointment(s)/Referral(s): Que Mon MD [Medical Doctor] - 2 Weeks Geoff Gutierrez MD [STAFF PHYSICIAN] - 1 Week Patient Instructions/Handouts: *Surgery [facility] - Scopalamine Patch Instructions
--- NOTE | 2017-12-07 15:09 | P.PN ---
Subjective Progress Note Date: 12/07/17 Mrs. Hung is seen today in follow-up from initial consultation for chest pain. She underwent laparoscopic cholecystectomy yesterday afternoon with Dr. Mon. She is seen this morning resting comfortably in bed in no acute distress. She complains of some minor surgical incision type pain to the right upper quadrant. She states the band type sensation she was feeling around her chest is completely resolved. Blood pressure 110/73 heart rate 60 afebrile maintaining oxygen saturation on room air. She has been up ambulating the halls without difficulty. Echocardiogram performed revealed preserved left ventricular systolic function with ejection fraction 55-60%, right atrium appears enlarged, left atrium mildly dilated. Objective - Vital Signs Vital signs: Vital Signs Temp 97.6 F 12/07/17 07:15 Pulse 60 12/07/17 07:15 Resp 18 12/07/17 07:15 BP 110/73 12/07/17 07:15 Pulse Ox 98 12/07/17 07:15 Intake & Output 12/06/17 12/07/17 12/07/17 18:59 06:59 18:59 Intake Total 300 650 200 Output Total 10 Balance 300 640 200 Intake: IV 300 650 Oral 200 Output: Estimated Blood Loss 10 Other: Voiding Method Toilet Toilet Toilet # Voids 1 - Exam GENERAL: Well-appearing, well-nourished and in no acute distress. NECK: Supple without JVD or thyromegaly. LUNGS: Breath sounds clear to auscultation bilaterally. Respiration equal and unlabored. No wheezes, rales or rhonchi. HEART: Regular rate and rhythm without murmurs, rubs or gallops. S1 and S2 heard. EXTREMITIES: Normal range of motion, no edema. No clubbing or cyanosis. Peripheral pulses intact and strong. - Labs CBC & Chem 7: 12/05/17 10:00 12/05/17 10:00 Assessment and Plan Assessment: ASSESSMENT 1. Chest pain, atypical. An acute coronary event has been ruled out with no EKG evidence of ischemia and negative cardiac enzymes. 2. Abdominal pain with nausea 3. Postoperative day #1 laparoscopic cholecystectomy PLAN Stable from a cardiac perspective to follow-up with Dr. Bateman as an outpatient for outpatient stress testing as needed. The above impression and plan of care have been discussed and directed by the signing physician. Isabell Ratliff, nurse practitioner, acting as scribe for signing physician.
[2017-12-07] MEDS ORDERED: KETOROLAC 30 MG/ML 1 ML VIAL IVP SCH (22:00)
== END 2017-12-07 14:39 | disposition home or self-care (01) ==
LOC: EC 09:41 → 3OBS 13:26
PROVIDERS: ADMIT Internal Medicine; ATTEND Internal Medicine
DX: K80.12 Calculus of gallbladder with acute and chronic cholecystitis without obstruction (principal); M25.562 Pain in left knee; M79.605 Pain in left leg; R07.89 Other chest pain; N80.9 Endometriosis, unspecified; R79.89 Other specified abnormal findings of blood chemistry; Z87.891 Personal history of nicotine dependence; Z79.3 Long term (current) use of hormonal contraceptives; Z82.49 Family history of ischemic heart disease and other diseases of the circulatory system; Z80.9 Family history of malignant neoplasm, unspecified; E66.9 Obesity, unspecified; Z68.30 Body mass index [BMI] 30.0-30.9, adult
CPT/HCPCS: 36415; 71046; 71275; 76705; 78226; 80053; 81025; 82150; 82550; 82553; 83690; 83735; 83880; 84484; 85025; 85379; 85610; 85730; 88304; 93005; 93306; 96372; 99285

== ENCOUNTER → 2018-02-27 | Outpatient (CLI) | payer BC ==
[2018-02-27 10:36] LABS: Basophils % (A) 0 %; Eosinophils # (A) 0.1 k/uL (0-0.7); Eosinophils % (A) 2 %; HCT 36.6 % (34.0-46.0); HGB 11.5 gm/dL (11.4-16.0); Lymphocytes # (A) 1.3 k/uL (1.0-4.8); Lymphocytes % (A) 23 %; MCHC 31.4 g/dL (31.0-37.0); MCV 89.1 fL (80.0-100.0); Mean Platelet Volume 7.4; Monocytes # (A) 0.3 k/uL (0-1.0); Monocytes % (A) 6 %; Neutrophils # (A) 3.6 k/uL (1.3-7.7); Neutrophils % (A) 67 %; Platelet Count 275 k/uL (150-450); RDW 13.1 % (11.5-15.5); WBC 5.4 k/uL (3.8-10.6)
[2018-02-27 11:02] LABS: ALT 23 U/L (9-52); AST 20 U/L (14-36); Albumin 3.8 g/dL (3.5-5.0); Alkaline Phosphatase 67 U/L (38-126); Anion Gap 9 mmol/L; Blood Urea Nitrogen 7 mg/dL (7-17); Calcium 9.2 mg/dL (8.4-10.2); Carbon Dioxide 27 mmol/L (22-30); Chloride 104 mmol/L (98-107); Cholesterol 168 mg/dL (<200); Glucose 96 mg/dL (74-99); HDL Cholesterol 68 mg/dL (40-60); LDL Cholesterol,Calculated 82 mg/dL (0-99); Potassium 4.7 mmol/L (3.5-5.1); Sodium 140 mmol/L (137-145); Total Bilirubin 0.3 mg/dL (0.2-1.3); Total Protein 6.7 g/dL (6.3-8.2); Triglycerides 89 mg/dL (<150)
[2018-02-27 11:11] LABS: T4, Free (Free Thyroxine) 0.93 ng/dL (0.78-2.19)
[2018-02-27 16:53] LABS: Thyroid Peroxidase Antibodies 40.2 U/mL (0.0-60.0); Vitamin D 25 Hydroxy 26.5 ng/mL (30.0-100.0)
[2018-02-27 16:58] LABS: Centromere Antibody Interp NEGATIVE (NEGATIVE); DNA Double-Stranded NEGATIVE (NEGATIVE); RNP <0.2 AI; Scleroderma SC-70 Ab <0.2 AI
[2018-02-27 21:41] LABS: Hemoglobin A1C 5.7 % (4.0-6.0)
== END | disposition home or self-care (01) ==
LOC: LABWHC1 09:10
PROVIDERS: ATTEND Family Medicine
DX: L65.0 Telogen effluvium (principal); Z13.228 Encounter for screening for other metabolic disorders; Z13.220 Encounter for screening for lipoid disorders; Z30.40 Encounter for surveillance of contraceptives, unspecified
CPT/HCPCS: 36415; 80053; 80061; 82306; 82607; 82626; 83036; 83516; 84403; 84439; 84443; 85025; 86038; 86225; 86235; 86376

== ENCOUNTER → 2018-06-17 | Outpatient (CLI) | payer BC ==
[2018-06-17 11:25] LABS: Basophils % (A) 0 %; Eosinophils # (A) 0.1 k/uL (0-0.7); Eosinophils % (A) 2 %; HCT 39.3 % (34.0-46.0); HGB 12.6 gm/dL (11.4-16.0); Lymphocytes # (A) 1.9 k/uL (1.0-4.8); Lymphocytes % (A) 30 %; MCH 28.2 pg (25.0-35.0); MCHC 32.1 g/dL (31.0-37.0); MCV 87.7 fL (80.0-100.0); Mean Platelet Volume 6.9; Monocytes # (A) 0.3 k/uL (0-1.0); Monocytes % (A) 4 %; Neutrophils # (A) 3.8 k/uL (1.3-7.7); Neutrophils % (A) 62 %; Platelet Count 323 k/uL (150-450); RBC 4.48 m/uL (3.80-5.40); RDW 12.8 % (11.5-15.5); WBC 6.2 k/uL (3.8-10.6)
[2018-06-17 17:25] LABS: Iron Saturation 15.65 (12.00-45.00)
[2018-06-17 17:26] LABS: Anion Gap 7.6 mmol/L (4.00-12.00); Calcium 9.6 mg/dL (8.7-10.3); Carbon Dioxide 25.4 mmol/L (21.6-31.8); Potassium 4.8 mmol/L (3.5-5.5)
== END | disposition home or self-care (01) ==
LOC: LABWHC1 10:31
PROVIDERS: ATTEND Family Medicine
DX: L65.0 Telogen effluvium (principal); E53.8 Deficiency of other specified B group vitamins
CPT/HCPCS: 36415; 80048; 83540; 83550; 85025

== ENCOUNTER → 2018-11-10 | Outpatient (CLI) | payer BC ==
[2018-11-10 10:00] LABS: Basophils % (A) 1 %; Eosinophils # (A) 0.4 k/uL (0-0.7); Eosinophils % (A) 6 %; HGB 12.5 gm/dL (11.4-16.0); Lymphocytes # (A) 1.4 k/uL (1.0-4.8); Lymphocytes % (A) 21 %; MCH 27.6 pg (25.0-35.0); MCHC 31.2 g/dL (31.0-37.0); MCV 88.5 fL (80.0-100.0); Mean Platelet Volume 7.2; Monocytes # (A) 0.4 k/uL (0-1.0); Monocytes % (A) 6 %; Neutrophils # (A) 4.3 k/uL (1.3-7.7); Neutrophils % (A) 64 %; Platelet Count 283 k/uL (150-450); RBC 4.52 m/uL (3.80-5.40); RDW 14.2 % (11.5-15.5); WBC 6.7 k/uL (3.8-10.6)
[2018-11-10 10:01] LABS: Appearance,Urine Clear (Clear); Bilirubin,Urine Negative (Negative); Blood,Urine Negative (Negative); Color,Urine Light Yellow; Glucose,Urine (UA) Negative (Negative); Ketones,Urine Negative (Negative); Leukocyte Esterase,Urine Negative (Negative); Nitrite,Urine Negative (Negative); Protein,Urine Negative (Negative); Specific Gravity,Urine 1.002 (1.001-1.035); Urobilinogen,Urine <2.0 mg/dL (<2.0)
[2018-11-10 13:23] LABS: Erythrocyte Sedimentation Rate 33 mm/hr (0-20)
[2018-11-10 16:23] LABS: Protein, Total 6.7 g/dL (6.2-8.2)
[2018-11-10 16:30] LABS: Thyroid Peroxidase Antibodies 31.4 U/mL (0.0-60.0)
[2018-11-10 16:44] LABS: T4, Free (Free Thyroxine) 0.9 ng/dL (0.80-1.80)
[2018-11-10 16:52] LABS: Albumin 4.4 g/dL (3.80-4.90); Albumin/Globulin Ratio 1.83 (1.60-3.17); Anion Gap 5.5 mmol/L (4.00-12.00); C Reactive Protein 4.2 mg/dL (0.0-0.8); Calcium 9.6 mg/dL (8.7-10.3); Carbon Dioxide 27.5 mmol/L (21.6-31.8); Globulin 2.4 g/dL (1.6-3.3); Magnesium 1.8 mg/dL (1.5-2.4); Potassium 4.6 mmol/L (3.5-5.5); Total Bilirubin 0.3 mg/dL (0.3-1.2); Total Protein 6.8 g/dL (6.2-8.2)
[2018-11-14 11:02] LABS: Lyme IgG/IgM 0.1 Index
[2018-11-14 11:57] LABS: Albumin 3.63 g/dL (3.80-4.90); Gamma Globulin 0.99 g/dL (0.70-1.50)
== END ==
LOC: LABWHC1 09:09
PROVIDERS: ATTEND Family Medicine
DX: M79.10 Myalgia, unspecified site (principal); L65.9 Nonscarring hair loss, unspecified; L65.0 Telogen effluvium; T14.8XXA Other injury of unspecified body region, initial encounter; R21 Rash and other nonspecific skin eruption; R10.2 Pelvic and perineal pain
CPT/HCPCS: 36415; 80053; 81003; 82550; 82595; 82626; 82785; 83615; 83735; 84165; 84403; 84439; 84443; 85025; 85652; 86140; 86304; 86376; 86618

== ENCOUNTER → 2019-09-05 | Outpatient (CLI) | payer BC ==
--- NOTE | 2019-09-06 14:24 | MM ---
Reason for exam: screening (asymptomatic). Last mammogram was performed 2 years ago. History: Taking hormonal contraceptives for 3 months beginning at age 36. Physical Findings: A clinical breast exam by your physician is recommended on an annual basis and results should be correlated with mammographic findings. MG Screening Mammo w CAD Bilateral CC and MLO view(s) were taken. Prior study comparison: August 25, 2017, bilateral MG screening mammo w CAD. May 23, 2015, bilateral MG screening mammo w CAD. The breast tissue is heterogeneously dense. This may lower the sensitivity of mammography. No suspicious abnormality. No significant changes when compared with prior studies. ASSESSMENT: Negative, BI-RAD 1 RECOMMENDATION: Routine screening mammogram of both breasts in 1 year.
== END | disposition home or self-care (01) ==
LOC: RADMAMWWP 09:19
PROVIDERS: ATTEND Obstetrics & Gynecology
DX: Z12.31 Encounter for screening mammogram for malignant neoplasm of breast (principal)
CPT/HCPCS: 77067

== ENCOUNTER → 2021-01-09 | Outpatient (CLI) | payer BC ==
--- NOTE | 2021-01-12 11:09 | MM ---
Reason for exam: screening (asymptomatic). Last mammogram was performed 1 year and 4 months ago. History: Took hormonal contraceptives for 3 months beginning at age 36. Physical Findings: A clinical breast exam by your physician is recommended on an annual basis and results should be correlated with mammographic findings. MG Screening Mammo w CAD Bilateral CC and MLO view(s) were taken. Prior study comparison: September 05, 2019, bilateral MG screening mammo w CAD. August 25, 2017, bilateral MG screening mammo w CAD. The breast tissue is heterogeneously dense. This may lower the sensitivity of mammography. There is no discrete abnormality. ASSESSMENT: Negative, BI-RAD 1 RECOMMENDATION: Routine screening mammogram of both breasts in 1 year.
== END | disposition home or self-care (01) ==
LOC: RADMAMWWP 07:13
PROVIDERS: ATTEND Obstetrics & Gynecology
DX: Z12.31 Encounter for screening mammogram for malignant neoplasm of breast (principal)
CPT/HCPCS: 77067

== ENCOUNTER → 2022-01-21 | Outpatient (CLI) | payer BC ==
--- NOTE | 2022-01-21 14:22 | MM ---
Reason for Exam: Screening (asymptomatic). Last mammogram was performed 1 year(s) and 1 month(s) ago. Patient History: Menarche at age 13. First Full-Term at age 30. Hormonal Contraceptives for 3 months starting at age 36. Last menstrual period: 07/22/2021 Risk Values: Josee 5 year model risk: 1.1%. NCI Lifetime model risk: 9.9%. Prior Study Comparison: 08/25/2017 Bilateral Screening Mammogram, [facility]. 09/05/2019 Bilateral Screening Mammogram, [facility]. 01/09/2021 Bilateral Screening Mammogram, [facility]. Tissue Density: The breast tissue is heterogeneously dense. This may lower the sensitivity of mammography. Findings: Analyzed By CAD. There is no suspicious group of microcalcifications or new suspicious mass in either breast. Overall Assessment: Negative, BI-RAD 1 Management: Screening Mammogram of both breasts in 1 year. A clinical breast exam by your physician is recommended on an annual basis and results should be correlated with mammographic findings. Electronically signed and approved by: Damir Hartman M.D.
== END | disposition home or self-care (01) ==
LOC: RADMAMWWP 11:11
PROVIDERS: ATTEND Obstetrics & Gynecology
DX: Z12.31 Encounter for screening mammogram for malignant neoplasm of breast (principal)
CPT/HCPCS: 77063; 77067

== ENCOUNTER → 2023-02-03 | Outpatient (CLI) | payer BC ==
--- NOTE | 2023-02-04 17:42 | MM ---
Reason for Exam: Screening (asymptomatic). Last screening mammogram was performed 12 month(s) ago. Patient History: Menarche at age 13. First Full-Term at age 30. Patient has history of breast feeding. Hormonal Contraceptives for 3 months starting at age 36. Last menstrual period: 02/02/2023 Risk Values: Josee 5 year model risk: 1.1%. NCI Lifetime model risk: 9.7%. Prior Study Comparison: 08/25/2017 Bilateral Screening Mammogram, [facility]. 09/05/2019 Bilateral Screening Mammogram, [facility]. 01/09/2021 Bilateral Screening Mammogram, [facility]. 01/21/2022 Bilateral MG 3D screening mammo w/cad, [facility]. Tissue Density: The breast tissue is heterogeneously dense. This may lower the sensitivity of mammography. Findings: Analyzed By CAD. Pattern appears symmetrical and stable. No significant changes evident. No suspicious groups of microcalcifications, spiculated or lobular masses, architectural distortion or other secondary signs of malignancy are mammographically apparent. Overall Assessment: Negative, BI-RAD 1 Management: Screening Mammogram of both breasts in 1 year. A negative mammogram report should not preclude additional follow up of suspicious palpable abnormalities. Patient should continue monthly self breast exam. A clinical breast exam by your physician is recommended on an annual basis and results should be correlated with mammographic findings. Electronically signed and approved by: David Booth D.O. Radiologis
== END | disposition home or self-care (01) ==
LOC: RADMAMWWP 07:39
PROVIDERS: ATTEND Obstetrics & Gynecology
DX: Z12.31 Encounter for screening mammogram for malignant neoplasm of breast (principal)
CPT/HCPCS: 77063; 77067

== ENCOUNTER → 2023-07-18 | Outpatient (CLI) | payer BC ==
[2023-07-18 16:11] LABS: Basophils # (A) 0.06 X 10*3/uL (0.00-0.10); Basophils % (A) 0.9 %; Eosinophils % (A) 1.5 %; HCT 39.1 % (37.2-46.3); HGB 11.9 g/dL (12.0-15.0); Lymphocytes # (A) 2.91 X 10*3/uL (0.90-5.00); Lymphocytes % (A) 42.9 %; MCH 28.3 pg (27.0-32.0); MCHC 30.4 g/dL (32.0-37.0); MCV 93.1 FL (80.0-97.0); Mean Platelet Volume 10.6 FL (9.5-12.2); Monocytes # (A) 0.38 X 10*3/uL (0.20-1.00); Monocytes % (A) 5.6 %; NRBC Per 100 WBC 0 X 10*3/uL (0.00-0.01); Neutrophils # (A) 3.31 X 10*3/uL (1.80-7.70); Neutrophils % (A) 48.7 %; Platelet Count 426 X 10*3/uL (140-440); RDW 13.7 % (11.5-14.5); WBC 6.79 X 10*3/uL (4.50-10.00)
[2023-07-18 16:57] LABS: Chol/HDL Ratio 2.72 Ratio; LDL Cholesterol,Calculated 106.8 mg/dL (0.0-131.0); VLDL Calculation 13.98 mg/dL (5.00-40.00)
[2023-07-18 17:07] LABS: ALT 17 U/L (8-44); AST 30 U/L (13-35); Albumin 4.4 g/dL (3.8-4.9); Albumin/Globulin Ratio 1.52 Ratio (1.60-3.17); Alkaline Phosphatase 71 U/L (41-126); BUN/Creat Ratio 12.17 Ratio (12.00-20.00); Blood Urea Nitrogen 7.3 mg/dL (9.0-27.0); Calcium 9.7 mg/dL (8.7-10.3); Chloride 104 mmol/L (96-109); Globulin 2.9 g/dL (1.6-3.3); Glucose 92 mg/dL (70-110); Potassium 5.6 mmol/L (3.5-5.5); Sodium 140 mmol/L (135-145); Total Bilirubin <0.2 mg/dL (0.3-1.2); Total Protein 7.3 g/dL (6.2-8.2)
== END | disposition home or self-care (01) ==
LOC: LABWHC1 09:33
PROVIDERS: ATTEND Family Medicine
DX: E55.9 Vitamin D deficiency, unspecified (principal); E78.5 Hyperlipidemia, unspecified; E53.8 Deficiency of other specified B group vitamins; R73.9 Hyperglycemia, unspecified; R94.6 Abnormal results of thyroid function studies
CPT/HCPCS: 36415; 80053; 80061; 82306; 82607; 83036; 84443; 85025

== ENCOUNTER → 2023-09-01 | Outpatient (CLI) | payer BC ==
[2023-09-02 10:27] LABS: Beef IgE <0.10 kU/L (<0.10); Beef IgE Class CLASS 0; Lettuce IgE Class CLASS 0; Onion IgE 0.26 kU/L (<0.10); Onion IgE Class CLASS 0/1; Pork IgE Class CLASS 0
[2023-09-02 10:28] LABS: Apple IgE Class CLASS 0; Chicken IgE Class CLASS 0; Gluten IgE Class CLASS 0; Oat IgE Class CLASS 0/1; Yeast Bakers/Brew IgE <0.10 kU/L (<0.10); Yeast Bakers/Brew IgE Class CLASS 0
[2023-09-02 10:29] LABS: Avocado Class CLASS 0/1; Banana IgE Class CLASS 0/1; Hazelnut IgE <0.10 kU/L (<0.10); Hazelnut IgE Class CLASS 0; Kiwi IgE 0.15 kU/L (<0.10); Kiwi IgE Class CLASS 0/1; Latex IgE Class CLASS 0
== END | disposition home or self-care (01) ==
LOC: LABWHC1 14:47
PROVIDERS: ATTEND Otolaryngology
DX: L50.0 Allergic urticaria (principal)
CPT/HCPCS: 36415; 86003

== ENCOUNTER → 2023-09-15 | Outpatient (CLI) | payer BC ==
[2023-09-15 22:43] LABS: Clam IgE <0.10 kU/L; Codfish IgE <0.10 kU/L; Egg White IgE <0.10 kU/L; Peanut IgE <0.10 kU/L; Scallop IgE <0.10 kU/L; Shrimp IgE <0.10 kU/L; Soybean IgE <0.10 kU/L; Walnut IgE (Food) <0.10 kU/L
== END | disposition home or self-care (01) ==
LOC: LABWHC1 13:39
PROVIDERS: ATTEND Otolaryngology
DX: J30.89 Other allergic rhinitis (principal)
CPT/HCPCS: 36415; 82785; 86003

== ENCOUNTER → 2024-03-14 | Outpatient (CLI) | payer BC ==
--- NOTE | 2024-03-15 09:21 | MM ---
Reason for Exam: Screening (asymptomatic). Last mammogram was performed 1 year(s) and 1 month(s) ago. Patient History: Menarche at age 13. First Full-Term at age 30. Postmenopausal. Patient has history of breast feeding. Hormonal Contraceptives for 3 months starting at age 36. Risk Values: Josee 5 year model risk: 1.2%. NCI Lifetime model risk: 9.6%. Prior Study Comparison: 01/09/2021 Bilateral Screening Mammogram, [facility]. 01/21/2022 Bilateral MG 3D screening mammo w/cad, [facility]. 02/03/2023 Bilateral MG 3D screening mammo w/cad, [facility]. Tissue Density: The breasts are heterogeneously dense, which may obscure small masses. Findings: Analyzed By CAD. No dominant mass. Loosely grouped calcifications in the upper margin of the bilateral breast. Recommend spot magnification view and true lateral view. Benign-appearing calcifications. Overall Assessment: Incomplete: need additional imaging evaluation, BI-RAD 0 Management: Diagnostic Mammogram of both breasts. . Patient should continue monthly self-breast exams. A clinical breast exam by your physician is recommended on an annual basis. This exam should not preclude additional follow-up of suspicious palpable abnormalities. Note on Josee scores and lifetime risk: 1. A Josee score greater than 3% is considered moderate risk. If this is the case, consider specialist referral to assess eligibility for a risk reducing agent. 2. If overall lifetime risk for the development of breast cancer is 20% or higher, the patient may qualify for future screening with alternating mammogram and breast MRI. Electronically signed and approved by: Geoff Herrera M.D. Radiologis
== END | disposition home or self-care (01) ==
LOC: RADMAMWWP 08:55
PROVIDERS: ATTEND Family Medicine
DX: Z12.31 Encounter for screening mammogram for malignant neoplasm of breast (principal); R92.333 Mammographic heterogeneous density, bilateral breasts; Z78.0 Asymptomatic menopausal state
CPT/HCPCS: 77063; 77067

== ENCOUNTER → 2024-03-23 | Outpatient (CLI) | payer BC ==
--- NOTE | 2024-04-24 09:49 | MM ---
Reason for Exam: Follow-up at short interval from prior study. Last screening mammogram was performed less than 1 month ago. Patient History: Menarche at age 13. First Full-Term at age 30. Postmenopausal. Patient has history of breast feeding. Hormonal Contraceptives for 3 months starting at age 36. Risk Values: Josee 5 year model risk: 1.2%. NCI Lifetime model risk: 9.6%. Prior Study Comparison: 02/03/2023 Bilateral MG 3D screening mammo w/cad, [facility]. 03/14/2024 Bilateral MG 3D screening mammo w/cad, [facility]. Tissue Density: The breasts are heterogeneously dense, which may obscure small masses. Findings: Analyzed By CAD. Calcifications appear punctate/benign. No new suspicious masses, calcifications or distortions. Overall Assessment: Benign, BI-RAD 2 Management: Screening Mammogram of both breasts in 1 year. Results were given to the patient verbally at the time of exam. Patient should continue monthly self-breast exams. A clinical breast exam by your physician is recommended on an annual basis. This exam should not preclude additional follow-up of suspicious palpable abnormalities. Note on Josee scores and lifetime risk: 1. A Josee score greater than 3% is considered moderate risk. If this is the case, consider specialist referral to assess eligibility for a risk reducing agent. 2. If overall lifetime risk for the development of breast cancer is 20% or higher, the patient may qualify for future screening with alternating mammogram and breast MRI. Electronically signed and approved by: Leonardo Goodrich DO
== END | disposition home or self-care (01) ==
LOC: RADMAMWWP 10:07
PROVIDERS: ATTEND Family Medicine
DX: R92.8 Other abnormal and inconclusive findings on diagnostic imaging of breast (principal); R92.1 Mammographic calcification found on diagnostic imaging of breast; Z78.0 Asymptomatic menopausal state
CPT/HCPCS: 77062; 77066

== ENCOUNTER → 2024-07-24 | Outpatient (CLI) | payer BC ==
[2024-07-24 14:49] LABS: Basophils # (A) 0.03 X 10*3/uL (0.00-0.10); Basophils % (A) 0.5 %; Eosinophils # (A) 0.19 X 10*3/uL (0.04-0.35); Eosinophils % (A) 3.2 %; HCT 38.5 % (37.2-46.3); HGB 12.4 g/dL (12.0-15.0); Lymphocytes # (A) 1.77 X 10*3/uL (0.90-5.00); Lymphocytes % (A) 29.6 %; MCH 29.1 pg (27.0-32.0); MCHC 32.2 g/dL (32.0-37.0); MCV 90.4 FL (80.0-97.0); Mean Platelet Volume 10.7 FL (9.5-12.2); Monocytes # (A) 0.34 X 10*3/uL (0.20-1.00); Monocytes % (A) 5.7 %; NRBC Per 100 WBC 0 X 10*3/uL (0.00-0.01); Neutrophils # (A) 3.64 X 10*3/uL (1.80-7.70); Neutrophils % (A) 60.8 %; Platelet Count 311 X 10*3/uL (140-440); RBC 4.26 X 10*6/uL (4.10-5.20); WBC 5.98 X 10*3/uL (4.50-10.00)
[2024-07-24 15:53] LABS: % Iron Saturation 27.59 (12.00-45.00); ALT 19 U/L (8-44); AST 19 U/L (13-35); Albumin 4.5 g/dL (3.8-4.9); Albumin/Globulin Ratio 1.73 Ratio (1.60-3.17); Alkaline Phosphatase 73 U/L (41-126); BUN/Creat Ratio 20.33 Ratio (12.00-20.00); Blood Urea Nitrogen 12.2 mg/dL (9.0-27.0); Calcium 9.8 mg/dL (8.7-10.3); Carbon Dioxide 24.4 mmol/L (21.6-31.8); Chloride 103 mmol/L (96-109); Chol/HDL Ratio 2.46 Ratio; Globulin 2.6 g/dL (1.6-3.3); Glucose 94 mg/dL (70-110); Iron 88 UG/DL (50-170); LDL Cholesterol,Calculated 109.8 mg/dL (0.0-131.0); Potassium 4.5 mmol/L (3.5-5.5); Sodium 141 mmol/L (135-145); Total Bilirubin 0.4 mg/dL (0.3-1.2); Total Iron Binding Capacity 319 UG/DL (228-460); Total Protein 7.1 g/dL (6.2-8.2); VLDL Calculation 11.32 mg/dL (5.00-40.00)
== END | disposition home or self-care (01) ==
LOC: LABWHC1 09:04
PROVIDERS: ATTEND Family Medicine
DX: E55.9 Vitamin D deficiency, unspecified (principal); E78.5 Hyperlipidemia, unspecified; D51.9 Vitamin B12 deficiency anemia, unspecified; D82.4 Hyperimmunoglobulin E [IgE] syndrome
CPT/HCPCS: 36415; 80053; 80061; 82306; 82607; 83540; 83550; 84443; 85025

== ENCOUNTER 2024-11-14 07:43 | Day surgery (SDC) | payer BC ==
[~2024-11-14 07:43] MED LIST: LACTATED RINGERS 1,000 ML IV SCH; LIDOCAINE 1% (10MG/ML) FOR IV START INTRADERMA PRN
[2024-11-14] MEDS: IV FLUID CONTINUATION 1,000 ML IV ONE (08:00)
[2024-11-14 08:11] VITALS: TEMP 98.5
[2024-11-14] MEDS ORDERED: PROPOFOL 10 MG/ML 20 ML VIAL IV ONE (09:05)
[2024-11-14] MEDS ORDERED: LIDOCAINE 1% INJ 10MG/ML (20 ML MDV) ONE (09:05)
--- NOTE | 2024-11-14 09:10 | P.GSHP ---
History of Present Illness H&P Date: 11/14/24 CHIEF COMPLAINT: GERD and colon screen HISTORY OF PRESENT ILLNESS: The patient is a 54-year-old female who presents with gastroesophageal reflux disease and need for colon screen. Upper and lower endoscopy were offered for further evaluation and management. PAST MEDICAL HISTORY: Please see list. PAST SURGICAL HISTORY: Please see list. MEDICATIONS: Please see list. ALLERGIES: Please see list. SOCIAL HISTORY: No illicit drug use FAMILY HISTORY: No reports of Crohn disease or ulcerative colitis. REVIEW OF ORGAN SYSTEMS: CONSTITUTIONAL: No reports of fevers or chills. GI: Denies any blood in stools or constipation. PHYSICAL EXAM: VITAL SIGNS: Stable GENERAL: Well-developed pleasant in no acute distress. HEENT: No scleral icterus. Extraocular movements grossly intact. Moist buccal mucosa. NECK: Supple without lymphadenopathy. CHEST: Unlabored respirations. Equal bilateral excursions. CARDIOVASCULAR: Regular rate and rhythm. Distal 2+ pulses. ABDOMEN: Soft, nondistended. MUSCULOSKELETAL: No clubbing, cyanosis, or edema. ASSESSMENT: 1. Gastroesophageal reflux disease 2. Colon screen. PLAN: 1. Recommend proceeding with an upper and lower endoscopy Past Medical History Past Medical History: No Reported History Additional Past Medical History / Comment(s): Frequent headaches. History of Any Multi-Drug Resistant Organisms: None Reported Past Surgical History: Cholecystectomy Additional Past Surgical History / Comment(s): surgery for endometriosis many years ago, wisdom teeth extractions. Past Anesthesia/Blood Transfusion Reactions: No Reported Reaction, Motion Sickness Smoking Status: Former smoker - Past Family History Father Family Medical History: Hypertension Mother Family Medical History: Cancer Additional Family Medical History / Comment(s): Mother had a type of sarcoma. Medications and Allergies Home Medications Medication Instructions Recorded Confirmed Type No Known Home Medications 11/12/24 11/14/24 History Allergies Allergy/AdvReac Type Severity Reaction Status Date / Time No Known Allergies Allergy Verified 11/14/24 08:11 Surgical - Exam Vital Signs Temp Pulse Resp BP Pulse Ox 98.5 F 69 16 122/85 100 11/14/24 08:09 11/14/24 08:09 11/14/24 08:09 11/14/24 08:09 11/14/24 08:09
--- NOTE | 2024-11-14 09:23 | P.PCN ---
Date of Procedure: 11/14/24 Description of Procedure: PREOPERATIVE DIAGNOSIS: Anemia POSTOPERATIVE DIAGNOSIS: Acute gastric ulcer with bleeding Acute gastritis of bleeding Acute duodenal ulcer with bleeding Acute duodenitis Diaphragmatic hiatal hernia OPERATION: Esophagogastroduodenoscopy with cold forceps biopsies along esophagus, antrum and duodenum SURGEON: Rosie Bell MD ANESTHESIA: MAC. INDICATIONS: The patient is a 54-year-old female who presents with anemia. Benefits and risks of the procedure were described. Informed consent was obtained. DESCRIPTION: The patient was brought into the endoscopy suite and laid in the left lateral decubitus position. An Olympus gastroscope was passed along the posterior oroph arynx down to the distal esophagus where the squamocolumnar junction was encountered at 37 cm from the incisors. The stomach was entered and no bile reflux was found. Additional findings are listed below. Biopsies with cold forceps were obtained of the antrum. The first through third portion of the duodenum was examined. Retroflexion of the scope confirmed Hill grade 2 lower esophageal valve. The squamocolumnar junction demonstrated LA grade B erosive esophagitis. The stomach was desufflated. The patient tolerated the procedure well. FINDINGS: Squamocolumnar junction 37 cm from the incisors. Diaphragmatic hiatus at 39 cm. Hiatal hernia, 2 cm Hill grade 2 lower esophageal valve. LA grade A erosive esophagitis. Biopsies obtained Acute duodenal ulcer, 2 mL of bleeding including duodenitis with biopsies obtained of the duodenum. Acute gastric ulcer, multiple 3 to 4 mm with bleeding, distal and proximal to angularis incisura with biopsies obtained Acute gastritis with bleeding with biopsies obtained RECOMMENDATIONS: Omeprazole 40 mg daily for 2 to 4 weeks Carafate 1 g twice daily for 2 to 4 weeks Repeat upper endoscopy 4 to 6 weeks
[2024-11-14 09:59] VITALS: BP 130/71; PULSE 60; RESP 16
--- NOTE | 2024-11-14 10:07 | P.PCN ---
Date of Procedure: 11/14/24 Description of Procedure: PREOPERATIVE DIAGNOSIS: Colonoscopy screening. POSTOPERATIVE DIAGNOSIS: Colonoscopy screening. Diverticulosis, scattered. OPERATION: Colonoscopy to the cecum, ileocecal valve and appendiceal orifice. SURGEON: Rosie Bell MD. ANESTHESIA: MAC. INDICATIONS: The patient is a 54-year-old female who presents for colonoscopy screening. Benefits and risks were described and informed consent was obtained. DESCRIPTION OF PROCEDURE: The patient had undergone Suprep. The patient had been brought into the operating room and laid in the left lateral decubitus position. After adequate intravenous sedation, the rectum was examined with 2% lidocaine jelly. No external hemorrhoids were encountered. The rectal tone was within normal limits. No lesions were palpated in the rectal vault. An Olympus colonoscope was advanced until the cecum, ileocecal valve and appendiceal orifice were clearly viewed. The prep was good. Scattered diverticulosis was encountered. No colonic polyps were found. No evidence of focal colitis was found. Retroflexion of the scope demonstrated grade 1 internal hemorrhoids without active bleeding or inflammation. The colon was desufflated. The patient had tolerated the procedure well. Withdrawal time was over 6 minutes. FINDINGS: Aronchick preparation quality scale 2 (1-5) Internal hemorrhoids, grade 1 No external prolapsed hemorrhoids. No arteriovenous malformations. No adenomatous polyps. No focal colitis. Scattered diverticulosis RECOMMENDATIONS: Lower endoscopy in 2029 Plan - Discharge Summary Discharge Rx Participant: No New Discharge Prescriptions: New Sucralfate [Carafate] 1 gm PO BID #60 tablet Omeprazole [PriLOSEC] 40 mg PO DAILY #30 cap Discharge Medication List Omeprazole [PriLOSEC] 40 mg PO DAILY #30 cap 11/14/24 [Rx] Sucralfate [Carafate] 1 gm PO BID #60 tablet 11/14/24 [Rx] Follow up Appointment(s)/Referral(s): Rosie Bell MD [STAFF PHYSICIAN] - 11/27/24 4:00 pm Patient Instructions/Handouts: *Surgery [facility] - (Anesthesia) Discharge Instructions Outpatient Surgery, Diet for Stomach Ulcers and Gastritis (ED), Diverticulosis Diet (GEN) Activity/Diet/Wound Care/Special Instructions: Repeat colonoscopy years2029 Discharge Disposition: HOME SELF-CARE
== END 2024-11-14 11:00 | disposition home or self-care (01) ==
LOC: ORWHC2ENDO 07:43
PROVIDERS: ATTEND Surgery Plastic and Reconstructive Surgery
DX: Z12.11 Encounter for screening for malignant neoplasm of colon (principal); K57.30 Diverticulosis of large intestine without perforation or abscess without bleeding; K64.0 First degree hemorrhoids; K21.00 Gastro-esophageal reflux disease with esophagitis, without bleeding; K25.0 Acute gastric ulcer with hemorrhage; K26.0 Acute duodenal ulcer with hemorrhage; K29.80 Duodenitis without bleeding; K29.50 Unspecified chronic gastritis without bleeding; K44.9 Diaphragmatic hernia without obstruction or gangrene; D50.9 Iron deficiency anemia, unspecified; R51.9 Headache, unspecified; Z87.891 Personal history of nicotine dependence; Z90.49 Acquired absence of other specified parts of digestive tract
CPT/HCPCS: 88305; 88342; 45378; 43239; J2003; J2704

== ENCOUNTER → 2025-01-30 | Outpatient (CLI) | payer BC ==
--- NOTE | 2025-01-30 12:11 | US ---
EXAMINATION TYPE: US extremity nonvasc mass LT DATE OF EXAM: 01/30/2025 COMPARISON: NONE CLINICAL INDICATION: Female, 54 years old with history of M71.22 Synovial cyst of popliteal; Posterio r left knee swelling TECHNIQUE: FINDINGS: Cystic area seen in popliteal fossa = 3.5 x 0.6 x 1.7 cm IMPRESSION: 1. Left popliteal cyst [facility], , 01/30/2025 12:09 PM
== END | disposition home or self-care (01) ==
LOC: RADUSWWP 10:21
PROVIDERS: ATTEND Surgery Plastic and Reconstructive Surgery
DX: M71.22 Synovial cyst of popliteal space [Baker], left knee (principal)